=== PATIENT | female | born 1930 | race Caucasian/White ===

== ENCOUNTER → 2016-06-25 | Outpatient (CLI) | payer MEDICARE, OTHER ==
--- NOTE | 2016-06-26 08:59 | RADRPT ---
PROCEDURE: XR pelvis/left hip. CLINICAL INDICATION: Hip pain TECHNIQUE: AP pelvis/AP and lateral left hip views performed COMPARISON: No prior studies are available for comparison. FINDINGS: There is moderate bilateral hip osteoarthrosis. This is associated with joint space narrowing, subch ondral sclerosis and osteophytosis. There is normal mineralization. No fractures or osseous lesion s are identified. The soft tissues are unremarkable. IMPRESSION: Moderate bilateral hip osteoarthrosis. RPTAT: [facility] .Lionel Henry MD, Date Time Electronically viewed and signed by .Lionel Henry MD, on 06/26/2016 08:59 .B/
== END | disposition home or self-care (01) ==
LOC: HKI 13:40
PROVIDERS: ATTEND Orthopaedic Surgery
DX: M51.36 Other intervertebral disc degeneration, lumbar region (principal); M54.16 Radiculopathy, lumbar region
CPT/HCPCS: 73502; G0463